=== PATIENT | male | born 1985 | race Caucasian/White ===

== ENCOUNTER 2016-10-29 12:39 | Emergency (ER) | payer SELFPAY | END 2016-10-29 13:35 | disposition home or self-care (01) | LOC: D.ER 12:39 | DX: J02.9 Acute pharyngitis, unspecified (principal) ==

== ENCOUNTER 2020-06-11 17:19 | Emergency (ER) | payer SELFPAY ==
[~2020-06-11] VITALS: Ht 175.3 cm; Wt 73.2 kg
[~2020-06-11 17:19] MED LIST: AUGMENTIN 875-11 TAB PO; DICLOFENAC SODI50 MG PO; HYDROCODON-ACE1 EA10 PO
[2020-06-11 17:34] VITALS: BP 184/92; Ht 175.3 cm; Wt 73.2 kg
== END 2020-06-11 18:28 | disposition home or self-care (01) ==
LOC: D.ER 17:19
DX: S01.01XA Laceration without foreign body of scalp, initial encounter (principal); W22.8XXA Striking against or struck by other objects, initial encounter; Y93.9 Activity, unspecified; Y92.9 Unspecified place or not applicable